=== PATIENT | male | born 1970 | race Caucasian/White ===

== ENCOUNTER 2023-10-07 14:20 | Outpatient (CLI) | payer BC, SELFPAY | END 2023-10-07 14:21 | disposition home or self-care (01) | PROVIDERS: PCP Family Medicine; Visit Provider Family Medicine | DX: Z00.00 Encounter for general adult medical examination without abnormal findings (principal); Z13.1 Encounter for screening for diabetes mellitus; Z13.6 Encounter for screening for cardiovascular disorders; Z12.5 Encounter for screening for malignant neoplasm of prostate; Z80.6 Family history of leukemia | CPT/HCPCS: 80048; 80061; G0103 ==

== ENCOUNTER 2024-12-06 14:05 | Outpatient (CLI) | payer BC, SELFPAY | END 2024-12-06 14:06 | disposition home or self-care (01) | PROVIDERS: PCP Family Medicine; Visit Provider Family Medicine | DX: Z12.5 Encounter for screening for malignant neoplasm of prostate (principal); E88.810 Metabolic syndrome | CPT/HCPCS: 80048; G0103 ==

== ENCOUNTER 2025-01-17 15:31 | Outpatient (CLI) | payer BC, SELFPAY ==
--- NOTE | 2025-01-24 11:40 | W.PM.SLEEP ---
Sleep Study Details Details Interpreting Provider: Solomon Date of Sleep Study: 01/17/25 Sleep Study Details: STUDY TYPE:? Home unattended ? BMI:? 30 ORDERING PROVIDER:? Solomon INDICATION:? Concern about sleep apnea ? SLEEP SUMMARY:? 351 minutes monitored RESPIRATORY SUMMARY:? AHI 32.3 Low oxygen 84 3.3% of study oxygen less than 90% Snoring 100% PERIODIC LIMB MOVEMENTS OF SLEEP:? Not recorded CARDIAC:? Range 60-114, mean 78.4 beats per minute IMPRESSION:? Severe obstructive sleep apnea RECOMMENDATION: Treatment options include CPAP or bilevel.
== END 2025-01-17 15:32 | disposition home or self-care (01) ==
PROVIDERS: PCP Family Medicine; Visit Provider Otolaryngology
DX: G47.33 Obstructive sleep apnea (adult) (pediatric) (principal)
CPT/HCPCS: 95806